=== PATIENT | female | born 1940 | race Caucasian/White ===

== ENCOUNTER 2020-02-23 18:45 | Emergency (ER) | payer MEDICARE, OTHER ==
[~2020-02-23] VITALS: Wt 86.6 kg
[~2020-02-23 18:45] MED LIST: ALAVERT10 M1; ASPIRIN81 M1 PO; BONIVA150 MG PO; MAXZIDE 50 MG-71 TA1 PO; METFORMIN750 MG PO; NORVASC5 MG PO; PROTONIX40 MG PO; VITAMIN D32000 I1 PO
[2020-02-23 19:37] LABS: HEMATOCRIT 38.1 % (37.0-47.0); MEAN CELL VOLUME 79.2 fl (81.0-99.0); MEAN CORPUSCULAR HGB 23.5 pg (27.0-31.0); MEAN CORPUSCULAR HGB CONC 29.7 g/dl (33.0-37.0); MEAN PLATELET VOLUME 9.4 fl (9.6-12.3); PLATELET COUNT AUTOMATED 139 10*3/uL (130-400); RED BLOOD COUNT 4.81 10*6/uL (4.10-5.10); RED CELL DISTRI WIDTH 16.4 % (0-14.5); WHITE BLOOD COUNT 11.9 10*3/uL (4.8-10.8)
[2020-02-23 19:56] LABS: MICROCYTOSIS SLIGHT; PLATELET SUFFICIENCY NORMAL (NORMAL); TOTAL CELLS COUNTED 100 #CELLS
[2020-02-23 19:57] LABS: BILIRUBIN Negative (Negative); BLOOD Negative (Negative); CLARITY Clear (Clear); COLOR Yellow (Yellow); GLUCOSE Negative (Negative); KETONE Negative (Negative); LEUKO ESTERASE 2+ (Negative); NITRITE Negative (Negative); SPECIFIC GRAVITY 1.015 (1.001-1.030); UROBILINOGEN 0.2 E.U./dl (0.0-1.0)
[2020-02-23 19:57] LABS: OVALOCYTES FEW; STOMATOCYTE FEW
[2020-02-23 20:06] LABS: ALBUMIN 3.6 gm/dl (3.1-4.5); ALKALINE PHOSPHATASE 67 U/L (45-117); BUN 21 mg/dl (7-24); CHLORIDE 97 mmol/L (98-107); CREATININE 1.01 mg/dL (0.55-1.02); LIPASE 93 U/L (73-393); POTASSIUM 3.4 mmol/L (3.5-5.1); SGOT/AST 18 IU/L (3-35); SGPT/ALT 20 U/L (12-78); SODIUM 137 mmol/L (136-145); TOTAL PROTEIN 7.9 gm/dL (6.4-8.2)
[2020-02-23 20:17] LABS: EPITHELIAL CELLS 0-2; RBC 0-2 rbc/hpf (0-2)
[2020-02-23] MEDS ORDERED: MIRALAX POWDER17 G1 PO (23:37)
[2020-02-23] MEDS ORDERED: NORCO 5-325 TA1 EACH PO (23:37)
[2020-02-23] MEDS ORDERED: MACROBID100 M1 PO (23:48)
== END 2020-02-24 00:04 | disposition home or self-care (01) ==
LOC: ED 18:45
PROVIDERS: Physician Assistant
DX: M48.56XA Collapsed vertebra, not elsewhere classified, lumbar region, initial encounter for fracture (principal); K59.00 Constipation, unspecified